=== PATIENT | male | born 1965 | race Caucasian/White ===

== ENCOUNTER 2017-03-04 11:25 | Emergency (ER) | payer OTHER ==
[~2017-03-04] VITALS: Ht 165.1 cm; Wt 74.8 kg
[~2017-03-04 11:25] MED LIST: CELEXA10 M1 PO; NORCO 5-325 TA1 EACH PO; TERBINAFINE HC250 MG PO
[2017-03-04] MEDS ORDERED: NORCO 5-325 TA1 EACH PO (12:24)
[2017-03-04 12:38] VITALS: BP 118/74
== END 2017-03-04 12:39 | disposition home or self-care (01) ==
LOC: ER 11:25
DX: S80.02XA Contusion of left knee, initial encounter (principal); F17.210 Nicotine dependence, cigarettes, uncomplicated; Z88.2 Allergy status to sulfonamides; Z88.1 Allergy status to other antibiotic agents; V89.2XXA Person injured in unspecified motor-vehicle accident, traffic, initial encounter; Y93.I9 Activity, other involving external motion; Y92.89 Other specified places as the place of occurrence of the external cause; Y99.8 Other external cause status